=== PATIENT | male | born 1965 | race Caucasian/White ===

== ENCOUNTER → 2017-07-11 | Day surgery (SDC) | payer OTHER ==
[~2017-07-11] MED LIST: GENTAMICIN SULFATE 80 MG/2 ML VIAL ONE; HYDR-3533 PO; IBUP-238 PO; KETOROLAC TROMETHAMINE 30 MG/ML (IVP) VIAL IV PUSH ONE; LACTATED RINGER'S 1000 ML INJ 1,000 ML ONE; MEPERIDINE HCL 50 MG/ML VIAL ONE; MIDAZOLAM HCL 2 MG/2 ML VIAL ONE; ONDANSETRON HCL 4 MG/2 ML VIAL IV PUSH ONE; PROPOFOL 200 MG/20 ML AMP IV ONE; ROBA750T3 PO; SODIUM CHLORIDE 0.9% 20 ML VIAL ONE; SODIUM CHLORIDE 0.9% INJ 100 ML IV ONE
--- NOTE | 2017-07-11 16:32 | TN ---
cc: REENA WOLF M.D. DATE OF SURGERY 07/11/2017 PREOPERATIVE DIAGNOSIS Right renal calculus (approximately 2 cm) ICD - 10 code N20.0). POSTOPERATIVE DIAGNOSIS Right renal calculus (approximately 2 cm) ICD - 10 code N20.0). PROCEDURE 1. Extracorporeal shock wave lithotripsy (ESWL) (CPT code 55528). 2. Cystourethroscopy with right ureteral stent placement (6-Faroese x 24 cm) (CPT code 50360). INDICATIONS Mr. Lozano is a 52-year-old gentleman who has an approximately 2 cm right renal stone who presents now for definitive treatment. Due to the overall stone burden I have recommended stenting of the ureter at the time of the procedure. Findings were normal anterior urethra with a couple of grade 1 urethral strictures. The prostatic urethra shows some mild hypertrophy with an elevated open bladder neck. The ureteral orifice normal size, shape and position effluxing clear urine. There are no sandy tumors, abnormal mucosa or calcifications identified. There is some mild trabeculation of the bladder. No diverticula or cellules. There is an approximately 2-cm round radiopacity in the area overlying the right renal pelvis. PROCEDURE The procedure as well as risks and benefits were explained to the patient. Informed consent was obtained. The patient was taken to the major operative theater where he was placed on the [employer] SLX-F II lithotripsy machine. At this time the patient was identified as well as the operative site. [place] time-out was performed in standard fashion. General anesthetic and prophylactic intravenous antibiotics consisting of gentamicin was administered. After adequate anesthetic he was placed in low dorsolithotomy position, prepped and draped usual sterile fashion. At this time a 22.5 Faroese cystoscope with a 30 degree lens was inserted into the urethra and bladder with the above findings. Attention was directed to the right ureteral orifice where a 0.035 inch hybrid wire was passed without difficulty up the ureter into the renal pelvis. Over the guidewire a 6-Faroese x 24 cm double-J ureteral stent was placed with the help of a pusher. When the stent was within the renal pelvis the pusher and guidewire were removed and there was a nice curl under fluoroscopy in the renal pelvis and under direct vision in the bladder. The bladder was then decompressed, the cystoscope removed. The patient was then placed in the supine position and the fluoroscopic C-arm was used to visualize the aforementioned renal stone. The shock heads were engaged and a total of 3000 shocks were administered at a frequency of 120 Hz at a high power level of 8.0 with complete pulverization of the stone. The patient tolerated the procedure well, emerged from anesthetic without difficulty and transferred to the recovery room in stable condition to be discharged home when criteria is met. There were no obvious complications. The patient may require additional endoscopic treatment depending on the results of the KUB in two weeks. MD VENKATESH Mcmahon/NANCY /3:46 PM /4:05 PM
== END | disposition home or self-care (01) ==
LOC: ESDC 13:13
PROVIDERS: ATTEND Urology
DX: N20.0 Calculus of kidney (principal)
CPT/HCPCS: 00873; 00910; 50590; 52332; C1769; J1580; J1885; J2250; J2405; J3010; J7120; J2175